=== PATIENT | male | born 1960 | race Caucasian/White ===

== ENCOUNTER 2017-03-04 14:18 | Emergency (ER) | payer MEDICARE, OTHER ==
[~2017-03-04] VITALS: Ht 180.3 cm; Wt 110.9 kg
[~2017-03-04 14:18] MED LIST: /ACETCOD2T PO; /ESOM40CA OR; /FAMO2TA PO; CITA10TA2 PO; COLA50CA3 PO; LIPI10TA PO; LYRI75CA PO; MULTTAB4 PO; NAPR500T2 PO; OMEG100011 PO; TEST1VL IM
[2017-03-04] MEDS ORDERED: GABA-283 PO (14:45)
[2017-03-04] MEDS ORDERED: FOLI800C PO (14:45)
[2017-03-04] MEDS ORDERED: FLOM5CAP PO (14:45)
[2017-03-04] MEDS ORDERED: ALPR0.25 PO (14:45)
[2017-03-04] MEDS ORDERED: CELE100C PO (14:45)
[2017-03-04] MEDS ORDERED: ASPI81TA85 PO (14:45)
[2017-03-04] MEDS ORDERED: ASCO25TA PO (14:45)
[2017-03-04] MEDS ORDERED: HYDR-3649 PO (14:45)
[2017-03-04] MEDS ORDERED: EFFE75CA75 PO (14:45)
[2017-03-04] MEDS ORDERED: BACL10TA2 PO (14:45)
[2017-03-04] MEDS ORDERED: HYDROmorphone HCL 1 MG/ML SYRINGE (J1170) IV ONE (15:45)
[2017-03-04] MEDS ORDERED: ONDANSETRON 4MG/2ML VIAL (J2405) IV ONE (15:45)
[2017-03-04 16:17] LABS: BASO # 0.1 K/mm3 (0.0-0.2); EOS # 0.1 K/mm3 (0.0-0.50); EOS % 1.1 % (0.0-3.0); LARGE UNSTAINED CELL # 0.1 K/mm3 (0.0-0.4); LARGE UNSTAINED CELL % 0.7 % (0.0-4.0); LYMPH # 1.4 K/mm3 (1.5-4.5); LYMPH % 11.9 % (24.0-44.0); MEAN CORPUSCULAR HEMOGLOBIN 31.4 pg (27.0-33.0); MEAN CORPUSCULAR HGB CONC 34.4 g/dl (32.0-36.5); MEAN CORPUSCULAR VOLUME 91.3 fl (80.0-96.0); MONO # 0.5 K/mm3 (0.0-0.8); MONO % 4.7 % (0.0-5.0); NEUTROPHILS # 8.8 K/mm3 (1.8-7.7); NEUTROPHILS % 80.6 % (36.0-66.0); PLATELET COUNT, AUTOMATED 226 k/mm3 (150-450); RED CELL DISTRIBUTION WIDTH 13.5 % (11.5-14.5); WHITE BLOOD COUNT 10.9 K/mm3 (4.0-10.0)
--- NOTE | 2017-03-04 16:17 | REP ---
Clinical: Left flank pain. Findings: Left kidney demonstrates a very mild hydroureter with trace periureteral stranding but no evidence for obstructing calculus. Bilateral intrarenal calculi are identified measuring up to 4 mm in the right kidney and 2 mm in left kidney. Correlation with urinalysis recommended. Differential diagnosis would include pyelonephritis as well as recently passed renal stone. Liver, spleen, pancreas, gallbladder, and bilateral adrenal glands are normal. Enteric system is without obstruction or acute inflammatory process. Normal terminal ileum and appendix identified in the right lower quadrant. Pelvis demonstrates normal bladder and age appropriate prostate/seminal vesicles. No free air. No free fluid. No adenopathy. Abdominal aorta without aneurysm. Musculoskeletal structures demonstrate prior posterior lumbar fusion/fixation. Lung bases are clear. Impression: 1. Mild left hydroureter with periureteral stranding and bilateral nonobstructing renal calculi. Differential diagnosis includes pyelonephritis as well as recently passed renal stone. 2. No further acute abdominopelvic pathology appreciated. Signed by Sunil Thakkar MD 03/04/2017 04:09 P
[2017-03-04 16:57] LABS: ANION GAP 4 MEQ/L (8-16); BLOOD UREA NITROGEN 12 MG/DL (7-18); CALCIUM LEVEL 9.2 MG/DL (8.5-10.1); CARBON DIOXIDE LEVEL 33 MEQ/L (21-32); CHLORIDE LEVEL 102 MEQ/L (98-107); CREATININE FOR GFR 0.98 MG/DL (0.70-1.30); GLOMERULAR FILTRATION RATE > 60.0 (>56); GLUCOSE, FASTING 110 MG/DL (70-105); POTASSIUM SERUM 4.1 MEQ/L (3.5-5.1); SODIUM LEVEL 139 MEQ/L (136-145)
[2017-03-04] MEDS ORDERED: ZOFR4TAB3 PO (17:20)
[2017-03-04] MEDS ORDERED: CIPR-249 PO (17:20)
[2017-03-04 17:49] VITALS: BP 141/97
== END 2017-03-04 17:52 | disposition home or self-care (01) ==
LOC: M ED 14:18
DX: N13.4 Hydroureter (principal); N20.0 Calculus of kidney; E78.00 Pure hypercholesterolemia, unspecified; F32.9 Major depressive disorder, single episode, unspecified; Z87.442 Personal history of urinary calculi; Z79.82 Long term (current) use of aspirin; Z79.899 Other long term (current) drug therapy; Z88.1 Allergy status to other antibiotic agents; Z88.5 Allergy status to narcotic agent; Z91.040 Latex allergy status; Z87.891 Personal history of nicotine dependence
CPT/HCPCS: 36415; 74176; 80048; 81001; 83690; 85025; 86140; 87086; 96374; 96375; 99283; J1170; J2405

== ENCOUNTER 2018-12-04 07:38 | Day surgery (SDC) | payer MEDICARE, OTHER ==
[~2018-12-04] VITALS: Ht 180.3 cm; Wt 99.3 kg
[~2018-12-04 07:38] MED LIST changes: -/ACETCOD2T PO; -/ESOM40CA OR; -/FAMO2TA PO; +ACET1TAB15 PO; +ALPR0.25 PO; +ASPI81TA85 PO; +BACL10TA2 PO; +CELE100C PO; +CIPR-249 PO; +COLA100C5 PO; +EFFE75CA2 PO; +FAMO1TAB11 PO; +FAMO40TA3 PO; +FLOM0.4C39 PO; +FOLI800C PO; +GABA-845 PO; +LISI-538 PO; +MORP30TASA PO; +MULT1TAB10 PO; +NEXI1CAP3 OR; +NEXI40CA PO; +NS 1,000 ML IV ONE; +OMEG10002 PO; +PRED1TABL PO; +PRED5PAK2 PO; +TEST200I14 IM; +VITA1TAB23 PO; +ZOFR4TAB14 PO; +ZOFR4TAB16 PO; +[UNRECOGNIZED DRUG - CODE] PO
[2018-12-04] MEDS ORDERED: PROPOFOL 200 MG/20 ML VIAL As Ordered ONE ×2 (08:23→08:39)
[2018-12-04] MEDS ORDERED: LIDOCAINE 2% INJ 100 MG/5 ML SDV (FOR ANES.) As Ordered ONE (08:23)
--- NOTE | 2018-12-04 09:04 | ROOR ---
Patient Name: Jarad Ovalle Procedure Date: 12/04/2018 8:26 AM Date of : 1960 Age: 58 Room: [facility] Gender: Male Note Status: Finalized Procedure: Colonoscopy Indications: Rectal bleeding, Abnormal CT of the GI tract, CT showed thickening of colon Providers: Dav Pritchard MD Referring MD: TASHA Junior Requesting Provider: Medicines: Monitored Anesthesia Care Complications: No immediate complications. Procedure: Pre-Anesthesia Assessment: - Prior to the procedure, a History and Physical was performed, and patient medications and allergies were reviewed. The patient is competent. The risks and benefits of the procedure and the sedation options and risks were discussed with the patient. All questions were answered and informed consent was obtained. Patient identification and proposed procedure were verified by the physician, the nurse and the anesthesiologist in the procedure room. Mental Status Examination: alert and oriented. CV Examination: regular rate and rhythm. Prophylactic Antibiotics: The patient does not require prophylactic antibiotics. Prior Anticoagulants: The patient has taken no previous anticoagulant or antiplatelet agents. ASA Grade Assessment: III - A patient with severe systemic disease. After reviewing the risks and benefits, the patient was deemed in satisfactory condition to undergo the procedure. The anesthesia plan was to use monitored anesthesia care (MAC). Immediately prior to administration of medications, the patient was re-assessed for adequacy to receive sedatives. The heart rate, respiratory rate, oxygen saturations, blood pressure, adequacy of pulmonary ventilation, and response to care were monitored throughout the procedure. The physical status of the patient was re-assessed after the procedure. The Colonoscope was introduced through the anus and advanced to the ileocecal valve. The colonoscopy was performed without difficulty. The patient tolerated the procedure well. The quality of the bowel preparation was excellent. Findings: Hemorrhoids were found on perianal exam. A few small-mouthed diverticula were found in the distal sigmoid colon. A 7 mm polyp was found at 25 cm proximal to the anus. The polyp was semi-pedunculated. The polyp was removed with a cold snare. Resection and retrieval were complete. Estimated blood loss was minimal. Non-bleeding external and internal hemorrhoids were found. The hemorrhoids were medium-sized. Impression: - Hemorrhoids found on perianal exam. - Diverticulosis in the distal sigmoid colon. - One 7 mm polyp at 25 cm proximal to the anus, removed with a cold snare. Resected and retrieved. - Non-bleeding external and internal hemorrhoids. Recommendation: - Discharge patient to home. - Resume previous diet. - Continue present medications. - Await pathology results. - Telephone endoscopist for pathology results in 1 week. Dav Pritchard MD Dav Pritchard MD 12/04/2018 9:04:18 AM Electronically signed by Dav Pritchard MD Number of Addenda: 0 Note Initiated On: 12/04/2018 8:26 AM Estimated Blood Loss: Estimated blood loss was minimal.
[2018-12-04 09:28] VITALS: BP 129/85
== END 2018-12-04 09:50 | disposition home or self-care (01) ==
LOC: M OPP 07:38
PROVIDERS: ATTEND Surgery
DX: D12.6 Benign neoplasm of colon, unspecified (principal); K64.8 Other hemorrhoids; K57.30 Diverticulosis of large intestine without perforation or abscess without bleeding; K62.5 Hemorrhage of anus and rectum; R93.3 Abnormal findings on diagnostic imaging of other parts of digestive tract

== ENCOUNTER → 2020-06-17 | Outpatient (REF) | payer MEDICARE, OTHER ==
[~2020-06-17] MED LIST changes: -ASPI81TA85 PO; +ASPI81TA86 PO; -NS 1,000 ML IV ONE; -VITA1TAB23 PO; +VITA250T20 PO; +[UNRECOGNIZED DRUG - CODE] PO; -[UNRECOGNIZED DRUG - CODE] PO
== END ==
LOC: M SFHCRHEU 15:41
PROVIDERS: ATTEND Internal Medicine
DX: M06.09 Rheumatoid arthritis without rheumatoid factor, multiple sites (principal)

== ENCOUNTER 2021-01-22 10:55 | Observation (INO) | payer MEDICARE, OTHER ==
[~2021-01-22] VITALS: Ht 180.3 cm; Wt 103.2 kg
[~2021-01-22 10:55] MED LIST changes: +GABA-283 PO; -GABA-845 PO; +HYDR16TA3 PO; -LISI-538 PO; +LISI20TA33 PO; -[UNRECOGNIZED DRUG - CODE] PO
[2021-01-22] MEDS ORDERED: PRED10PA PO (11:05)
[2021-01-22] MEDS ORDERED: ONDANSETRON 4MG/2ML VIAL IV ONE (11:20)
[2021-01-22] MEDS ORDERED: NS 1,000 ML IV ONE ×2 (11:20→13:30)
[2021-01-22] MEDS ORDERED: KETOROLAC 30 MG/ML 1ML VIAL IV ONE ×2 (11:30→20:05)
--- NOTE | 2021-01-22 11:44 | REP ---
INDICATION: lefgt flank pain COMPARISON: 03/04/2017 TECHNIQUE: Axial noncontrast images from the lung bases to the pubic symphysis with coronal and sagittal reformations. This CT examination was performed using the following dose reduction techniques: Automated exposure control, adjustment of mA and/or kv according to the patient's size, and use of iterative reconstruction technique. FINDINGS: Acute left-sided obstructive uropathy with mild perinephric stranding and mild hydroureteronephrosis secondary to a 5 mm obstructing calculus in the mid ureter (series 201; images 77-78). Bilateral nonobstructing intrarenal calculi noted measuring up to 5 mm in the right kidney and 6 mm in the left kidney. Liver, spleen, pancreas, gallbladder, and bilateral adrenal glands are normal. The enteric system is without obstruction or acute inflammatory process. Pelvis demonstrates normal bladder and age-appropriate prostate/seminal vesicles. Fat containing left inguinal hernia identified. No ascites. No free air. No adenopathy. Subcentimeter fat containing periumbilical hernia. Skeletal structures demonstrate degenerative changes including lumbar laminectomy and posterior fixation. 5 mm noncalcified nodule in the right lower lobe stable. IMPRESSION: 1. Acute left-sided obstructive uropathy with a 5 mm obstructing calculus in the mid left ureter. Bilateral nephrolithiasis. <Electronically signed by Sunil Thakkar > 01/22/21 [id number]
[2021-01-22 12:12] LABS: BASO # 0.1 10^3/uL (0.0-0.2); BASO % 0.7 % (0.0-1.0); EOS % 0.1 % (0.0-3.0); HEMATOCRIT 42.8 % (42.0-52.0); HEMOGLOBIN 14.6 g/dl (13.5-17.5); LYMPH # 1.1 10^3/uL (1.5-5.0); LYMPH % 13.5 % (24.0-44.0); MEAN CORPUSCULAR HEMOGLOBIN 30.9 pg (27.0-33.0); MEAN CORPUSCULAR HGB CONC 34.1 g/dl (32.0-36.5); MEAN CORPUSCULAR VOLUME 90.7 fl (80.0-96.0); MONO # 0.6 10^3/uL (0.0-0.8); MONO % 7.4 % (2.0-8.0); NEUTROPHILS # 6.4 10^3/uL (1.5-8.5); NEUTROPHILS % 77.9 % (36.0-66.0); PLATELET COUNT, AUTOMATED 219 10^3/uL (150-450); RED BLOOD COUNT 4.72 10^6/uL (4.30-6.10); WHITE BLOOD COUNT 8.2 10^3/uL (4.0-10.0)
[2021-01-22 12:39] LABS: ALBUMIN 3.7 GM/DL (3.2-5.2); BILIRUBIN,DIRECT 0.1 MG/DL (0.0-0.2); BILIRUBIN,TOTAL 0.4 MG/DL (0.2-1.0); TOTAL PROTEIN 6.7 GM/DL (6.4-8.2)
[2021-01-22] MEDS ORDERED: MORPHINE 4 MG/ML 1ML VIAL/SYRINGE (J2270) IV ONE (12:40)
[2021-01-22] MEDS ORDERED: NALOXONE INJ 0.4MG/1ML VIAL (J2310 PER 1MG) IV PRN (13:05)
[2021-01-22] MEDS ORDERED: HYDROMORPHONE HCL 0.5 MG/ 0.5 ML SYRINGE (J1170 PER 1) IV PRN ×2 (13:05)
--- NOTE | 2021-01-22 13:42 | HPEPDOC ---
[facility] Medical History & Physical Date of Admission January 22, 2021 Date of Service: January 22, 2021 History and Physical CHIEF COMPLAINT: Bilateral ureteral stones left-sided flank pain for 9 days HISTORY OF PRESENT ILLNESS: 60-year-old male with history of recurrent kidney stones, chronic back pain with multiple back surgeries, polymyalgia rheumatica sees a senior sas programmer on chronic prednisone 10 mg unable to be tapered off due to ongoing pain, depression, anxiety, prediabetic, hypertension, hyperlipidemia, obstructive sleep apnea, obesity, BMI of 31.7, multiple lumbar fusions L4-L5, L5-S1 with discectomy, spinal cord similar to her testing, which failed bifid trip C for kidney stones 2011, and colonic polyp with colonoscopy in the past presents the emergency room at [facility] today with ongoing colicky pain, particularly on his left flank. Patient has known history of kidney stones and was seen at [facility] emergency room 9 days ago when he was given tramadol IV fluids and sent home at that time he was found to have a 4.5 mm and a 6 mm stone with mild hydronephrosis sent home to pass it. According to the , patient has been using his medications for his back and has been not complaining of ongoing colicky pain lasting for a few hours on the left flank radiating to the lateral area. Patient has not had any fevers, chills, hematuria, cloudy urine, and despite straining the urine has not found any kidney stones. Patient says he feels better when he is on his knees and lays on the left side. Despite taking pain medications and acetaminophen at home. He's had no relief. He drinks about 10-12 bottles of liquids daily and has an outpatient appointment with urology on January 28 at 11:15 AM however, due to ongoing pain. Patient decided to come into the emergency room for evaluation. Urologist, Dr. Andres has been consulted and recommended nothing by mouth status, cystoscopy, stone extraction, lithotripsy and stent placement after 5 PM today. PAST MEDICAL /SURGICAL HISTORY: recurrent kidney stones, chronic back pain with multiple back surgeries, polymyalgia rheumatica sees a senior sas programmer on chronic prednisone 10 mg unable to be tapered off due to ongoing pain, depression, anxiety, prediabetic, hypertension, hyperlipidemia, obstructive sleep apnea, obesity, BMI of 31.7, m ultiple lumbar fusions L4-L5, L5-S1 with discectomy, spinal cord stimulator testing which failed and colonic polyp with colonoscopy, diverticulitis, rotator cuff tear, rotator cuff tendinitis and bursitis, right unilateral laminectomy, L4-L5 and posterior fusion L4-L5 with pedicle screws and iliac crest graft by Dr. Owens SOCIAL HISTORY: Denies recreational drug use. Denies cigarette use. on disability. 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 denies ETOH . Lives at home with his full code FAMILY HISTORY: Sr. with rheumatoid arthritis. Paternal aunt rheumatoid arthritis. Mother scleroderma needs autoimmune connective tissue disease. Son with Crohn's disease. 2 sons, one daughter healthy ALLERGIES: Please see below. REVIEW OF SYSTEMS: 10 point review of systems negative aside from positive findings on HPI HOME MEDICATIONS: Please see below. PHYSICAL EXAMINATION: VITAL SIGNS: See below GENERAL APPEARANCE: No distress. No pallor, icterus, jaundice. No use of respiratory accessory muscles HEENT: Extraocular muscles intact. Moist mucous membranes. No JVD, no thyromegaly, no cervical lymphadenopathy CARDIOVASCULAR: S1, S2 regular rate rhythm LUNGS: Air entry is equal bilaterally. Clear to auscultation. Wheezing, rales or rhonchi ABDOMEN: Obese, soft, nontender, nondistended, positive bowel sounds 4 quadrants. Positive CVA tenderness on the left flank EXTREMITIES: No cyanosis, clubbing or pitting edema LABORATORY DATA: See below. IMAGING: See below CT abdomen and pelvis: Acute left-sided obstructive uropathy with mild perinephric stranding and mild hydroureteronephrosis secondary to a 5 mm obstructing calculus in the mid ureter (series 201; images 77-78). Bilateral nonobstructing intrarenal calculi noted measuring up to 5 mm in the right kidney and 6 mm in the left kidney. Liver, spleen, pancreas, gallbladder, and bilateral adrenal glands are normal. The enteric system is without obstruction or acute inflammatory process. Pelvis demonstrates normal bladder and age-appropriate prostate/seminal vesicles. Fat containing left inguinal hernia identified. No ascites. No free air. No adenopathy. Subcentimeter fat containing periumbilical hernia. Skeletal structures demonstrate degenerative changes including lumbar laminectomy and posterior fixation. 5 mm noncalcified nodule in the right lower lobe stable. IMPRESSION: 1. Acute left-sided obstructive uropathy with a 5 mm obstructing calculus in the mid left ureter. Bilateral nephrolithiasis. MICROBIOLOGY: Please see below. ASSESSMENT: 60-year-old male with history of recurrent kidney stones, chronic back pain with multiple back surgeries, polymyalgia rheumatica sees a senior sas programmer on chronic prednisone 10 mg unable to be tapered off due to ongoing pain, depression, anxiety, prediabetic, hypertension, hyperlipidemia, obstructive sleep apnea, obesity, BMI of 31.7, multiple lumbar fusions L4-L5, L5-S1 with discectomy, spinal cord similar to her testing, which failed bifid trip C for kidney stones 2011, and colonic polyp with colonoscopy in the past presents the emergency room at [facility] today with ongoing colicky pain, particularly on his left flank. Patient has known history of kidney stones and was seen at [facility] emergency room 9 days ago when he was given tramadol IV fluids and sent home at that time he was found to have a 4.5 mm and a 6 mm stone with mild hydronephrosis sent home to pass it. According to the , patient has been using his medications for his back and has been not complaining of ongoing colicky pain lasting for a few hours on the left flank radiating to the lateral area. Patient has not had any fevers, chills, hematuria, cloudy urine, and despite straining the urine has not found any kidney stones. Patient says he feels better when he is on his knees and lays on the left side. Despite taking pain medications and acetaminophen at home. He's had no relief. He drinks about 10-12 bottles of liquids daily and has an outpatient appointment with urology on January 28 at 11:15 AM however, due to ongoing pain. Patient decided to come into the emergency room for evaluation. Urologist, Dr. Andres has been consulted and recommended nothing by mouth status, cystoscopy, stone extraction, lithotripsy and stent placement after 5 PM today. Acute left-sided obstructive uropathy -with mild perinephric stranding and mild hydroureteronephrosis secondary to a 5 mm obstructing calculus in the mid ureter - Bilateral nonobstructing intrarenal calculi noted measuring up to 5 mm in the right kidney and 6 mm in the left kidney. -Nothing by mouth urology consulted for cystoscopy, stone extraction, lithotripsy and stent placement, IV fluids, hypoglycemic protocol , IV pain medications -Patient has been medically optimized to proceed to surgery. . He currently does not have any acute cardiac ischemic complaints chronic back pain with multiple back surgeries, -IV pain meds polymyalgia rheumatica -sees a senior sas programmer on chronic prednisone 10 mg unable to be tapered off due to ongoing pain, -No history of rheumatoid arthritis -Patient is not septic and will not require perioperative hydrocortisone for potential adrenal insufficiency depression, anxiety, -Hold by mouth meds for now prediabetic, -Nothing by mouth, hypoglycemic protocol hypertension, -Controlled hyperlipidemia, -Chronic obstructive sleep apnea, obesity, BMI of 31.7, -Complicating care. STEPHANIE protocol multiple lumbar fusions L4-L5, L5-S1 with discectomy, -Chronic Diet nothing by mouth CODE STATUS full code DVT prophylaxis: Compression stockings Vital Signs Vital Signs Date Time Temp Pulse Resp B/P (MAP) Pulse Ox O2 Delivery O2 Flow Rate FiO2 01/22/21 13:07 18 Room Air 01/22/21 12:01 01/22/21 10:55 97.2 74 98 Laboratory Data Labs 24H Laboratory Tests 2 01/22/21 11:51: Immature Granulocyte % (Auto) 0.4, Neutrophils (%) (Auto) 77.9H, Lymphocytes (%) (Auto) 13.5L, Monocytes (%) (Auto) 7.4, Eosinophils (%) (Auto) 0.1, Basophils (%) (Auto) 0.7, Neutrophils # (Auto) 6.4, Lymphocytes # (Auto) 1.1L, Monocytes # (Auto) 0.6, Eosinophils # (Auto) 0.0, Basophils # (Auto) 0.1, Nucleated Red Blood Cells % (auto) 0.0, Urine Color COLORLESS, Urine Appearance CLEAR, Urine pH 7.0, Urine Specific Vaughn 1.001L, Urine Protein NEGATIVE, Urine Glucose (UA) 3+H, Urine Ketones NEGATIVE, Urine Blood NEGATIVE, Urine Nitrite NEGATIVE, Urine Bilirubin NEGATIVE, Urine Urobilinogen 0.2, Urine Leukocyte Esterase NEGATIVE, Urine WBC (Auto) 0, Urine RBC (Auto) 0, Urine Hyaline Casts (Auto) 0, Urine Bacteria (Auto) NEGATIVE, Urine Squamous Epithelial Cells 0, Urine Sperm (Auto) , Total Bilirubin 0.4, Direct Bilirubin 0.1, Aspartate Amino Transf (AST/SGOT) 35, Alanine Aminotransferase (ALT/SGPT) 62, Alkaline Phosphatase 67, Total Protein 6.7, Albumin 3.7, Albumin/Globulin Ratio 1.2, Lipase 34L 01/22/21 11:52: POC Glucose (Misc Panel) 308H, POC Sodium (Misc Panel) 135L, POC Potassium (Misc Panel) 4.2, POC Chloride (Misc Panel) 96L, POC Total CO2 (Misc Panel) 31.0H, POC Blood Urea Nitrogen (Misc Panel 11, POC Ionized Calcium (Misc Panel) 4.7, POC Creatinine (Misc Panel) 0.7, POC Hematocrit (Misc Panel) 45.0 CBC/BMP Laboratory Tests 01/22/21 11:51 Home Medications Scheduled Ascorbic Acid (Vitamin C) 250 Mg Tab, 500 MG PO DAILY Aspirin (Aspir 81) 81 Mg Tab, 81 MG PO DAILY Atorvastatin Calcium (Lipitor) 10 Mg Tab, 10 MG PO QPM Celecoxib (Celebrex) 100 Mg Cap, 100 MG PO BID Docusate Sodium (Colace) 100 Mg Cap, 100 MG PO BID Esomeprazole Magnesium (Nexium) 40 Mg Cap, 40 MG PO DAILY Famotidine (Famotidine) 40 Mg Tab, 40 MG PO DAILY Folic Acid (Folic Acid) 800 Mcg Cap, 800 MCG PO DAILY Gabapentin (Gabapentin) 400 Mg Cap, 800 MG PO BID Lisinopril (Lisinopril) 20 Mg Tab, 20 MG PO QHS Morphine Sulfate (Morphine Sulfate ER) 30 Mg Tabcr, 30 MG PO Q12H Multivitamins (Multivitamin Adults) 1 Tab Tab, 1 TAB PO DAILY [place]-3/Dha/Epa/Fish Oil (Fish Oil 1,000 mg Softgel) 1 Cap Cap, 1 CAP PO DAILY Prednisone (Prednisone) 10 Mg Tab.ds.pk, 10 MG PO DAILY Venlafaxine HCl (Effexor Xr) 75 Mg Cap, 225 MG PO DAILY Scheduled PRN Alprazolam (Alprazolam) 0.25 Mg Tab, 0.25 MG PO QIDP PRN for ANXIETY Baclofen (Baclofen) 10 Mg Tab, 10 MG PO BIDP PRN for SPASMS Ondansetron HCl (Zofran) 4 Mg Tab, 4 MG PO TIDP PRN for NAUSEA Allergies Coded Allergies: doxycycline (Verified Allergy, Intermediate, RASH, 11/27/18) oxycodone (Verified Adverse Reaction, Intermediate, agitation, 11/27/18) fentanyl (Verified Adverse Reaction, Mild, "loopy" per family, 11/27/18) latex (Verified Adverse Reaction, Mild, blisters, 11/27/18) A-FIB/CHADSVASC A-FIB History Current/History of A-Fib/PAF?: No Current PO Anticoag Therapy: No Age/Risk Factor Scoring CHADSVASC: CHADSVASC Response (Comments) Value Age Risk Factor Age < 65 years old 0 Gender Risk Factor Male 0 Hx of CHF No 0 Hx of HTN Yes 1 Hx of Stroke/TIA/or VTE No 0 Hx of Diabetes No 0 Hx of Vascular Disease No 0 Total 1 Treatment Treatment ordered: NONE UGO YAÑEZ MD January 22, 2021 13:42
[2021-01-22] MEDS ORDERED: DEXTROSE 50% 50 ML SYRINGE IV PRN (13:45)
[2021-01-22] MEDS ORDERED: GLUCOSE 4GM CHEW TABLET PO PRN (13:45)
[2021-01-22] MEDS ORDERED: GLUCAGON INJ 1MG VIAL SC PRN (13:45)
[2021-01-22] MEDS ORDERED: ONDANSETRON 4MG/2ML VIAL IV PRN ×2 (13:45→18:40)
[2021-01-22] MEDS ORDERED: MULT-40 PO (14:11)
[2021-01-22] MEDS ORDERED: GABA800T4 PO (14:11)
[2021-01-22] MEDS ORDERED: VITA-158 PO (14:11)
[2021-01-22] MEDS ORDERED: PRED10TA2 PO (14:11)
[2021-01-22] MEDS ORDERED: VENL-115 PO (14:11)
[2021-01-22 14:27] LABS: RSV AMPLIFICATION NEGATIVE (NEGATIVE)
[2021-01-22] MEDS ORDERED: NS 1,000 ML IV SCH (14:30)
--- NOTE | 2021-01-22 14:58 | REP ---
INDICATION: preoperatove flank pain COMPARISON: None. TECHNIQUE: PA and lateral. FINDINGS: The mediastinum and cardiac silhouette are normal. The lung mejía are clear and without acute consolidation, effusion, or pneumothorax. The skeletal structures are intact and normal. IMPRESSION: No acute cardiopulmonary process. <Electronically signed by Sunil Thakkar > 01/22/21 [id number]
[2021-01-22] MEDS ORDERED: CONRAY-60 60% 50ML VIAL (Q9961) As Ordered ONE (15:38)
[2021-01-22] MEDS ORDERED: MIDAZOLAM INJ 2MG/2ML VIAL (J2250 PER 1MG) As Ordered ONE (16:55)
[2021-01-22] MEDS ORDERED: fentaNYL 250 MCG/5 ML INJECTION (J3010) As Ordered ONE (16:55)
[2021-01-22] MEDS ORDERED: propofoL 200 MG/20 ML VIAL As Ordered ONE (16:55)
[2021-01-22] MEDS ORDERED: LIDOCAINE 2% 100MG/5ML SDV (FOR ANES.) As Ordered ONE (16:55)
[2021-01-22] MEDS ORDERED: ONDANSETRON 4MG/2ML VIAL As Ordered ONE (16:55)
[2021-01-22] MEDS ORDERED: dexameTHASONE 4 MG/ML 1ML VIAL (J1100 PER 1MG) As Ordered ONE (16:55)
[2021-01-22] MEDS ORDERED: ceFAZolin 2 GM/D5W 50 ML IV BAG (J0690 PER 500MG) As Ordered ONE (16:56)
[2021-01-22] MEDS ORDERED: GLYCOPYRROLATE INJ 0.2 MG/ML 2 ML VIAL As Ordered ONE (17:46)
--- NOTE | 2021-01-22 18:26 | SMCUROLCON ---
Urology Consultation General Date of Consultation 01/22/21 Reason For Consultation This patient is seen for Renal Calculus, Bilateral. History of Present Illness The patient is a 60-year-old male with a past medical history for renal calculi who began having left flank pain about 1 week ago. He presented to the [facility] where he was found to have an obstructing left ureteral calculus. He was sent home on tamsulosin but the pain did not improve. He presented to the hospital again today for the same pain and transferred to [facility] for treatment. He denies hematuria or voiding difficulty and has had about 6 stones in the past. One he needed ESWL treatment the other 5 he passed on his own. He does not remember what side the stones were on. Past Medical History Medical History Recurrent renal calculi Chronic back pain Polymyalgia Depression Anxiety Prediabetes Hypertension Hyperlipidemia Obstructive sleep apnea Obesity Diverticulitis Rotator cuff tear Rotator cuff tendinitis Surgical Hstory Multiple back operations Right unilateral laminectomy L4 and L5 Posterior fusion L4-5 Colonoscopy Rotator cuff repair Discectomy L4-5 and L5-S1 ESWL Family History Significant Family History: No pertinent family hx Social History * Smoker: non-smoker Alcohol: Denies Drugs: denies Medications Current Medications Current Medications Medications (Trade) Dose Ordered Sig/Janis Route PRN Reason Start Time Stop Time Status Last Admin Dose Admin Dextrose (Dextrose 50%) 25 ml ASDIRECTED PRN IV SEE LABEL COMMENTS 01/22/21 13:45 Glucagon (Glucagon) 1 mg ASDIRECTED PRN SC SEE LABEL COMMENTS 01/22/21 13:45 Glucose (Glucose) 16 GM ASDIRECTED PRN PO SEE LABEL COMMENTS 01/22/21 13:45 Home Med (Med Rec Complete!) ASDIRECTED XX 01/22/21 14:15 01/22/21 14:13 DC Hydromorphone HCl (Dilaudid) 0.5 mg Q3HP PRN IV MILD PAIN (PS 1-4) 01/22/21 13:05 Hydromorphone HCl (Dilaudid) 0.8 mg Q3HP PRN IV MODERATE/SEVERE PAIN (PS 5-10) 01/22/21 13:05 Naloxone HCl (Narcan) 0.1 mg Q5MP PRN IV RESP. RATE < 10 01/22/21 13:05 Ondansetron HCl (ZOFRAN INJection) 4 mg Q4HP PRN IV NAUSEA OR VOMITING 01/22/21 13:45 Sodium Chloride 1,000 ml @ 150 mls/hr Q6H40M IV 01/22/21 14:30 01/22/21 15:57 Allergies Allergies: Coded Allergies: doxycycline (Verified Allergy, Intermediate, RASH, 11/27/18) oxycodone (Verified Adverse Reaction, Intermediate, agitation, 11/27/18) fentanyl (Verified Adverse Reaction, Mild, "loopy" per family, 11/27/18) latex (Verified Adverse Reaction, Mild, blisters, 11/27/18) Review of Systems General: Reports: Normal Appetite; Denies: Fatigue, Malaise Constitutional: Denies: Fever, Chills, Sweats, Weakness, Malaise Eyes: Denies: Pain, Vision change ENT: Denies: Head Aches, Sore Throat, Epistaxis Skin: Denies: Rash, Lesions, Breakdown, Nail Changes Pulmonary: Denies: Dyspnea, Cough Cardiovascular: Denies Chest Pain, Denies Palpitations Gastrointestinal: Denies: Nausea, Vomiting, Abdominal Pain Genitourinary: Denies: Dysuria, Frequency, Incontinence, Hematuria Hematologic: Denies: Bruising, Bleeding Excessively Endocrine: Denies: Polydipsia, Polyphagia, Polyuria Musculoskeletal: Reports: Back Pain, Shoulder Pain Neurological: Denies: Weakness, Numbness, Incoordination, Change in Speech Psych: Reports: Mood Normal; Denies: Anxiety, Depression Physical Examination General Exam: Cooperative, Mild Distress EYE EXAM: PERRLA, Conjunctiva & lids normal, EOMI; No: Sclera icteric ENT EXAM: Atraumatic, Mucous membr. moist/pink, Pharynx Normal Neck Exam: Supple; No: JVD, thyromegaly Chest Exam: Clear to auscultation, Normal air movement Heart Exam: Rate Normal, Regular Rhythm, Normal S1, Normal S2; No: Murmurs, Rubs Abdomen Exam: Normal Bowel Sounds, Soft; No: Tenderness, Hepatospenomegaly Male Exam: Normal Genital Exam Extremity Exam: Normal Pulses; No: Clubbing, Cyanosis, Edema Skin Exam: Nl turgor and temperature; No: Rash, Breakdown Neuro Exam: Normal Gait, Normal Speech, Cranial Nerves 3-12 NL, Reflexes 2+ Psych Exam: Mental status NL, Mood NL, Oriented x 3 Vital Signs/I&O Vital Signs Date Time Temp Pulse Resp B/P (MAP) Pulse Ox O2 Delivery O2 Flow Rate FiO2 01/22/21 16:33 96.7 70 16 167/89 (115) 98 01/22/21 16:05 Room Air Laboratory Data 24H Labs Laboratory Tests 2 01/22/21 11:51: Immature Granulocyte % (Auto) 0.4, Neutrophils (%) (Auto) 77.9H, Lymphocytes (%) (Auto) 13.5L, Monocytes (%) (Auto) 7.4, Eosinophils (%) (Auto) 0.1, Basophils (%) (Auto) 0.7, Neutrophils # (Auto) 6.4, Lymphocytes # (Auto) 1.1L, Monocytes # (Auto) 0.6, Eosinophils # (Auto) 0.0, Basophils # (Auto) 0.1, Nucleated Red Blood Cells % (auto) 0.0, Urine Color COLORLESS, Urine Appearance CLEAR, Urine pH 7.0, Urine Specific [place] 1.001L, Urine Protein NEGATIVE, Urine Glucose (UA) 3+H, Urine Ketones NEGATIVE, Urine Blood NEGATIVE, Urine Nitrite NEGATIVE, Urine Bilirubin NEGATIVE, Urine Urobilinogen 0.2, Urine Leukocyte Esterase NEGATIVE, Urine WBC (Auto) 0, Urine RBC (Auto) 0, Urine Hyaline Casts (Auto) 0, Urine Bacteria (Auto) NEGATIVE, Urine Squamous Epithelial Cells 0, Urine Sperm (Auto) , Total Bilirubin 0.4, Direct Bilirubin 0.1, Aspartate Amino Transf (AST/SGOT) 35, Alanine Aminotransferase (ALT/SGPT) 62, Alkaline Phosphatase 67, Total Protein 6.7, Albumin 3.7, Albumin/Globulin Ratio 1.2, Lipase 34L 01/22/21 11:52: POC Glucose (Misc Panel) 308H, POC Sodium (Misc Panel) 135L, POC Potassium (Misc Panel) 4.2, POC Chloride (Misc Panel) 96L, POC Total CO2 (Misc Panel) 31.0H, POC Blood Urea Nitrogen (Misc Panel 11, POC Ionized Calcium (Misc Panel) 4.7, POC Creatinine (Misc Panel) 0.7, POC Hematocrit (Misc Panel) 45.0 01/22/21 13:34: Coronavirus (COVID-19)(PCR) NEGATIVE, Influenza Type A (RT-PCR) NEGATIVE, Influenza Type B (RT-PCR) NEGATIVE, Respiratory Syncytial Virus (PCR) NEGATIVE CBC/BMP Laboratory Tests 01/22/21 11:51 Assessment I reviewed the patient's CT scan confirming a mid left ureteral calculus about 6 mm in size. Plan Patient was taken to the operating room for cystoscopy, left retrograde pyelogram and ureteroscopic laser lithotripsy. Alternative treatments were d iscussed as well as the possible complications of infection, pain, perforation, strictures and bleeding. He and his agreed to these possible complications and wished to continue with the planned operation. Time Spent on Consult: Time Spent / Consult (Minutes): 60 SHAW DE LEON MD January 22, 2021 18:26
--- NOTE | 2021-01-22 18:33 | ROOPDOC ---
[facility] Report Of Operation Report of Operation DATE OF PROCEDURE: 01/22/21 PREPROCEDURE DIAGNOSES: Mid left ureteral calculus POSTPROCEDURE DIAGNOSES: Same PROCEDURE: Cystoscopy, left retrograde pyelogram, ureteroscopic laser lithotripsy, stent insertion, fluoroscopy with x-ray interpretation SURGEON: Dimitry Andres MD MOULDER OPERATOR: None ANESTHESIA: Gen. ESTIMATED BLOOD LOSS: Approximately 2 mL. COMPLICATIONS: None REMARKS: Patient had a ureteral stricture the midportion just below the ureteral calculus PROCEDURE NOTE: Patient was taken to the operating room for ureteroscopic laser lithotripsy because of an obstructing stone which has been unchanged in position for 1 week. DESCRIPTION OF PROCEDURE: The patient was placed on the table in supine position, given general anesthesia, placed in the lithotomy position, prepped with Betadine paint, draped in an aseptic manner, and timeout was performed. A #22 Hebrew cystoscope was inserted into the meatus and advanced under direct vision of a 30 lens to the bladder. The bladder was examined and found to be normal. The left ureteral orifice was then catheterized with a 5 Hebrew Pollack catheter and retrograde injection of Conray showed a mid ureteral defect consistent with stone. 2 wire guides were then advanced beyond the stone up to the renal pelvis and the cystoscope was exchanged for a flexible ureteroscope which was passed over the working wire up to the ureteral calculus. The laser fiber was then exchanged for the wire and stone was treated with the laser lithotripter. Many fragments were pushed back up to the renal pelvis and these were followed by the ureteroscope. Each individual calyx was examined and several more stones were found attached to the ingram of the calyces. These were also treated with the laser lithotripter until they were just very small fragments or powder. When all the stones were broken and all too small to remove, the ureteroscope was withdrawn under direct vision showing no further stone fragments. Retrograde pyelogram was performed showing no extravasation. Cystoscope was then passed over the working wire and a 6 Hebrew double-J stent was passed over the wire and the stent was seen to coil well in the renal pelvis and in the bladder when the wire was removed. The bladder was then drained, cystoscope was removed and the patient was awakened and sent to recovery room stable condition having tolerated procedure well. Fluoroscopy was used throughout the case to pass instruments, diagnosed the patient and place the ureteral stent. The patient will have the stent removed in 3 weeks as the stone was completely fragmented. DIMITRY ANDRES MD January 22, 2021 18:33
[2021-01-22] MEDS ORDERED: LR 1,000 ML IV SCH ×2 (18:35→18:40)
[2021-01-22] MEDS ORDERED: METOCLOPRAMIDE INJ 10MG/2ML VIAL (J2765 PER 1) IV PRN (18:40)
[2021-01-22] MEDS ORDERED: fentaNYL 100 MCG/2 ML INJECTION (J3010) IV PRN (18:40)
[2021-01-22] MEDS ORDERED: PERCOCET 5MG/325MG TAB PO PRN (18:40)
[2021-01-22 19:12] VITALS: BP 160/87
[2021-01-23] MEDS ORDERED: MORPHINE 30 MG TAB **MSIR PO PRN (07:10)
--- NOTE | 2021-01-23 11:03 | DSES ---
DISCHARGE SUMMARY DATE OF ADMISSION: 01/22/2021 DATE OF DISCHARGE: 01/22/2021 FIRST OFFICER AND FLIGHT INSTRUCTOR(S) DURING THIS ADMISSION: Urologist, Dimitry Andres. PROCEDURE(S) DURING THIS ADMISSION: On 01/22/2021, cystoscopy with left retrograde pyelogram, ureteroscopic laser, lithotripsy, stent insertion, fluoroscopy with x-ray interpretation. PRIMARY DISCHARGE DIAGNOSES: 1. Acute left-sided obstructive uropathy with mild perinephric stranding and mild hydroureteronephrosis. 2. A 5 mm obstructing calculus in the mid ureter. 3. Bilateral nonobstructing intrarenal calculi measuring 5 mm in the right kidney and 6 mm in the left kidney. 4. Chronic back pain with history of multiple back surgeries. 5. Polymyalgia rheumatica. 6. Depression and anxiety. 7. Prediabetic. 8. Hypertension. 9. Hyperlipidemia. 10. Obstructive sleep apnea. 11. Multiple lumbar fusions L4-5 and L5-S1 with diskectomy. DISCHARGE INSTRUCTIONS: Follow-up with Dr. Andres as an outpatient. Postop instructions per Dr. Andres. HOSPITAL COURSE: This is a 60-year-old male admitted to [facility] on 01/22, due to worsening colicky pain secondary to nonresolving kidney stones. The patient was seen at [facility] nine days ago, given tramadol, IV fluids, and sent home, but did not pass a stone at home. He otherwise denied any fever or chills. He presented to [facility] due to ongoing pain. The patient was supposed to see urology on 01/28 at 11:15 a.m., but could not wait until then due to worsening pain. The patient was given IV Dilaudid 0.5 and 0.8 as needed for [id number] and severe pain respectively. He was kept n.p.o. with IV fluids. He was medically cleared and underwent cystoscopy, ureteral stent placement, lithotripsy, and fluoroscopy with x-ray interpretation performed by Dr. Andres urologist. Postoperatively the patient had no complications and was discharged home. DISCHARGE MEDICATIONS: 1. Alprazolam 0.25 q.i.d. as needed. 2. Vitamin C 1 gram daily. 3. Atorvastatin 10 day. 4. Celebrex 100 b.i.d. 5. Colace 100 b.i.d. 6. Nexium 40 daily. 7. Famotidine 40 q. h.s. 8. Folic acid 800 mcg daily. 9. Gabapentin 800 t.i.d. 10. Morphine sulfate 30 mg q. 12. 11. Multivitamin one tablet daily. 12. Fish oil one capsule daily. 13. Zofran 4 t.i.d. as needed. 14. Prednisone 10 daily. 15. Effexor 225 daily. DISCHARGE PHYSICAL EXAMINATION: VITAL SIGNS: Temperature 97.2, pulse 82, respiratory rate 16, blood pressure 160/87, 82% to 99% on room air. GENERAL: The patient is awake, alert, and oriented. Answering questions appropriately. LUNGS: Clear to auscultation with no wheezing, rales, or rhonchi. HEART: S1, S2. Sinus rhythm. ABDOMEN: Obese, soft, nontender, and nondistended. EXTREMITIES: No cyanosis, clubbing, or pitting edema. LABORATORY DATA: On discharge white count 8.3, hemoglobin 14, hematocrit 42, platelet count 219,000. Total bilirubin 0.4, direct bilirubin 0.1, AST 35, ALT 62, alkaline phosphatase 67, total protein 6.7, albumin 3.7. Coronavirus-19 negative. Sodium 135, potassium 4.2, chloride 96, bicarb 31, BUN 11, creatinine 0.7, glucose of 308. IMAGING STUDIES: CT abdomen and pelvis 01/22/2021, acute left-sided obstructive uropathy with 5 mm obstructing calculus in the mid left ureter and bilateral nephrolithiasis. Time spent on discharge 30 minutes. MTDD
--- NOTE | 2021-01-23 17:05 | ECGEPIP ---
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
--- NOTE | 2021-01-25 09:10 | REP ---
INDICATION: CYSTO, LEFT URETEROSCOPY, LASER LITHO STENT. COMPARISON: None. TECHNIQUE: Intraoperative fluoroscopic imaging using C-arm technique. FINDINGS: Images demonstrate satisfactory left ureteral stent placement. Total fluoroscopic time 22 seconds. IMPRESSION: Satisfactory left ureteral stent placement. <Electronically signed by Sunil Thakkar > 01/25/21 0995
== END 2021-01-23 07:10 | disposition home or self-care (01) ==
LOC: M ED 10:55 → M ED INP 13:04
PROVIDERS: ADMIT General Practice; ATTEND General Practice
DX: N20.1 Calculus of ureter (principal); N13.8 Other obstructive and reflux uropathy; I10 Essential (primary) hypertension; E78.5 Hyperlipidemia, unspecified; G47.33 Obstructive sleep apnea (adult) (pediatric); E11.9 Type 2 diabetes mellitus without complications; E66.9 Obesity, unspecified; Z68.31 Body mass index [BMI] 31.0-31.9, adult; M54.9 Dorsalgia, unspecified; G89.29 Other chronic pain; F32.9 Major depressive disorder, single episode, unspecified; F41.9 Anxiety disorder, unspecified; M35.3 Polymyalgia rheumatica; Z98.1 Arthrodesis status; Z79.899 Other long term (current) drug therapy; Z79.82 Long term (current) use of aspirin; Z79.52 Long term (current) use of systemic steroids; Z79.891 Long term (current) use of opiate analgesic; Z88.1 Allergy status to other antibiotic agents; Z88.5 Allergy status to narcotic agent; Z88.6 Allergy status to analgesic agent; Z91.040 Latex allergy status
CPT/HCPCS: 52356; 71046; 74176; 74420; 80047; 80076; 81001; 83690; 85025; 87631; 93005; 96361; 96374; 96375; 99284; C1769; C2617; G0378; J0690; J1100; J1885; J2250; J2270; J2405; J3010; Q9961

== ENCOUNTER → 2021-03-04 | Outpatient (REF) | payer MEDICARE, OTHER ==
[~2021-03-04] MED LIST changes: +GABA800T4 PO; +MULT-40 PO; +PRED10PA PO; +PRED10TA2 PO; +VENL-115 PO; +VITA-158 PO
[2021-03-13 18:16] LABS: Ca Ox Monohydrate 100 % (.); Size 5x2 mm (.)
== END ==
LOC: M SMT 13:07
PROVIDERS: ATTEND Urology
DX: N20.0 Calculus of kidney (principal)

== ENCOUNTER → 2021-03-18 | Outpatient (REF) | payer MEDICARE, OTHER ==
[2021-03-18 17:22] LABS: BASO # 0.1 10^3/uL (0.0-0.2); BASO % 0.6 % (0.0-1.0); EOS % 0.4 % (0.0-3.0); HEMOGLOBIN 15.3 g/dl (13.5-17.5); LYMPH # 1.4 10^3/uL (1.5-5.0); LYMPH % 17.6 % (24.0-44.0); MEAN CORPUSCULAR HEMOGLOBIN 30.5 pg (27.0-33.0); MEAN CORPUSCULAR HGB CONC 33.3 g/dl (32.0-36.5); MEAN CORPUSCULAR VOLUME 91.8 fl (80.0-96.0); MONO # 0.5 10^3/uL (0.0-0.8); MONO % 6.3 % (2.0-8.0); NEUTROPHILS # 5.8 10^3/uL (1.5-8.5); NEUTROPHILS % 74.5 % (36.0-66.0); PLATELET COUNT, AUTOMATED 255 10^3/uL (150-450); RED BLOOD COUNT 5.01 10^6/uL (4.30-6.10); WHITE BLOOD COUNT 7.8 10^3/uL (4.0-10.0)
[2021-03-18 17:37] LABS: ALBUMIN 3.9 GM/DL (3.2-5.2); ALT/SGPT 43 U/L (12-78); BILIRUBIN,TOTAL 0.5 MG/DL (0.2-1.0); BLOOD UREA NITROGEN 11 MG/DL (7-18); CALCIUM LEVEL 9.5 MG/DL (8.5-10.1); CARBON DIOXIDE LEVEL 31 MEQ/L (21-32); CHLORIDE LEVEL 104 MEQ/L (98-107); GLOMERULAR FILTRATION RATE > 60.0 (>56); GLUCOSE, FASTING 137 MG/DL (70-100); POTASSIUM SERUM 4.4 MEQ/L (3.5-5.1); SODIUM LEVEL 139 MEQ/L (136-145); TOTAL PROTEIN 7.3 GM/DL (6.4-8.2)
[2021-03-18 17:41] LABS: TOTAL 25(OH) VITAMIN D 37.1 NG/ML (30.0-100.0)
[2021-03-18 17:53] LABS: ERYTHROCYTE SEDIMENTATION RATE 16 mm/hr (0-20)
== END ==
LOC: M SFHCRHEU 12:20
PROVIDERS: ATTEND Internal Medicine Rheumatology
DX: M35.3 Polymyalgia rheumatica (principal); Z79.52 Long term (current) use of systemic steroids
CPT/HCPCS: 11102; 11103; 80053; 82306; 85025; 85652; 86140; G0463

== ENCOUNTER → 2021-10-15 | Outpatient (REF) | payer MEDICARE, OTHER ==
[2021-10-15 16:59] LABS: APPEARANCE, URINE CLEAR (CLEAR); BACTERIA, URINE AUTO NEGATIVE (NEGATIVE); BILIRUBIN, URINE AUTO NEGATIVE (NEGATIVE); BLOOD, URINE BLOOD NEGATIVE (NEGATIVE); COLOR, URINE YELLOW (YELLOW); GLUCOSE, URINE (UA) AUTO NEGATIVE (NEGATIVE); KETONE, URINE AUTO NEGATIVE (NEGATIVE); LEUKOCYTE ESTERASE, URINE AUTO NEGATIVE (NEGATIVE); MUCUS, URINE SMALL (NEGATIVE); NITRITE, URINE AUTO NEGATIVE (NEGATIVE); PROTEIN, URINE AUTO NEGATIVE (NEGATIVE); RBC, URINE AUTO 0 /HPF (0-3); SPECIFIC GRAVITY URINE AUTO 1.006 (1.002-1.035); SQUAMOUS EPITHELIAL CELL UR AU 0 /HPF (0-6); UROBILINOGEN, URINE AUTO 0.2 mg/dL (0.0-2.0); WBC, URINE AUTO 0 /HPF (0-3)
== END ==
LOC: M SMT 16:33
PROVIDERS: ATTEND Urology
DX: N20.0 Calculus of kidney (principal)

== ENCOUNTER → 2023-03-02 | Outpatient (REF) | payer MEDICARE, OTHER | LOC: M LABSMT 11:56 | PROVIDERS: ATTEND Urology | DX: Z12.5 Encounter for screening for malignant neoplasm of prostate (principal) ==

== ENCOUNTER → 2025-05-07 | Outpatient (REF) | payer MEDICARE, OTHER ==
[~2025-05-07] MED LIST changes: -FLOM0.4C39 PO; +GABA-1635 PO; -GABA-283 PO; +GABA-284 PO; -GABA800T4 PO; +PRED-1142 PO; -PRED1TABL PO; +TAMS-18 PO
== END ==
LOC: M SMT 12:52
PROVIDERS: ATTEND Urology
DX: N20.0 Calculus of kidney (principal)